=== PATIENT | male | born 1935 | race Hispanic/Latino ===

== ENCOUNTER → 2018-02-05 | Outpatient (CLI) | payer MEDICARE ==
[~2018-02-05] MED LIST: ASPI-555 PO; BIMA12.5OS OD; CILO100T PO; CILO50TA PO; DOXA4TAB3 PO; FLUT16H NS; INSU100I21 SQ; LOSA50TA25 PO; METF-446 PO; METO-408 PO; PRAV40TA3 PO; TIMO5TAB OU
== END | disposition home or self-care (01) ==
LOC: SHCH 14:18
PROVIDERS: ATTEND Internal Medicine Cardiovascular Disease
DX: I73.9 Peripheral vascular disease, unspecified (principal); I10 Essential (primary) hypertension; E11.9 Type 2 diabetes mellitus without complications; E78.5 Hyperlipidemia, unspecified; M19.90 Unspecified osteoarthritis, unspecified site; I25.10 Atherosclerotic heart disease of native coronary artery without angina pectoris; Z87.891 Personal history of nicotine dependence
CPT/HCPCS: 93925

== ENCOUNTER 2018-02-16 07:15 | Day surgery (SDC) | payer MEDICARE ==
[2018-02-13 08:44] VITALS: BP 121/67
[2018-02-13 08:47] LABS: APPEARANCE,URINE Clear (CLEAR); BILIRUBIN,URINE Negative (NEGATIVE); COLOR,URINE Dark Yellow (YELLOW); GLUCOSE, URINE (UA) TRACE mg/dL (NEGATIVE); KETONES,URINE Trace mg/dL (NEGATIVE); LEUKOCYTE ESTERASE ,URINE Negative (NEGATIVE); NITRATE,URINE Negative (NEGATIVE); OCCULT BLOOD,URINE Negative (NEGATIVE); PROTEIN,URINE POS 1+ (NEGATIVE)
[2018-02-13 08:47] LABS: BASOPHILS % (AUTO) 0.4 % (0.0-5.0); EOSINOPHILS % (AUTO) 3.3 % (0.0-8.0); HEMATOCRIT 43.5 % (42-54); LYMPHOCYTES % (AUTO) 40.5 % (21.0-51.0); MEAN CORPUSCULAR HEMOGLOBIN 31.6 pg (27.0-33.0); MEAN CORPUSCULAR HGB CONC 33.2 g/dL (32.0-36.0); MEAN CORPUSCULAR VOLUME 95.3 fL (79-99); MONOCYTES % (AUTO) 4.7 % (3.0-13.0); NEUTROPHILS % (AUTO) 51.1 % (40.0-77.0); NUCLEATED RED BLOOD CELLS 0.1 % (0.0-0.19); PLATELET COUNT (AUTO) 142 K/uL (130-400); RED BLOOD CELL COUNT(AUTO) 4.56 MIL/uL (4.50-6.20); RED CELL DISTRIBUTION WIDTH 12.7 % (11.0-15.5); WHITE BLOOD COUNT (AUTO) 7.6 K/uL (4.8-10.8)
[2018-02-13 08:57] LABS: CREATININE 0.9 mg/dL (0.5-1.5)
[2018-02-13 09:11] LABS: INR 1.02 (0.85-1.15); PARTIAL THROMBOPLASTIN TIME 31.3 SEC (26.3-35.5); PROTHROMBIN TIME 10.7 SEC (9.6-11.6)
[2018-02-13 09:14] LABS: BACTERIA,URINE Rare /HPF (None Seen); MUCUS,URINE Few LPF (None Seen); RBC,URINE None Seen /HPF (0-1); SQUAMOUS EPITHELIAL CELL,UR Rare /HPF (0-2); WBC,URINE None Seen /HPF (0-1)
[~2018-02-16] VITALS: Ht 167.6 cm; Wt 73.5 kg
[2018-02-16] VITALS (10 sets, daily range): BP systolic 121–142; BP diastolic 60–71
[~2018-02-16 07:15] MED LIST changes: -CILO50TA PO; -TIMO5TAB OU
[2018-02-16] MEDS ORDERED: SODIUM CHLORIDE 0.9% 1000ML 1,000 ML IV SCH ×2 (08:00→09:47)
[2018-02-16] MEDS ORDERED: HEPARIN SODIUM 1000UNIT/ML 10ML VIAL ONE (08:43)
[2018-02-16] MEDS ORDERED: NITROGLYCERIN 5 MG/ML 10 ML VIAL IV ONE (08:43)
[2018-02-16] MEDS ORDERED: LIDOCAINE HCL-MPF 2% 5ML VIAL ONE (08:43)
[2018-02-16] MEDS ORDERED: MIDAZOLAM HCL 1 MG/ML 2ML VIAL ONE (08:43)
[2018-02-16] MEDS ORDERED: IODIXANOL 320 MG/ML 100 ML VIAL ONE (08:43)
[2018-02-16] MEDS ORDERED: FENTANYL CITRATE PF 50 MCG/1 ML 2ML VIAL ONE (08:44)
[2018-02-16] MEDS ORDERED: DEXTROSE 50%-WATER 50 ML DISP.SYRIN IV PRN (10:00)
[2018-02-16] MEDS ORDERED: GLUCAGON 1MG KIT 1 MG ML IM PRN (10:00)
[2018-02-16] MEDS ORDERED: METOPROLOL TARTRATE 1 MG/ML 5ML VIAL IV PRN (10:00)
[2018-02-16] MEDS ORDERED: NITROGLYCERIN 0.4 MG SL TAB SL PRN (10:00)
[2018-02-16] MEDS ORDERED: ACETAMINOPHEN 325 MG TAB ONE (10:37)
[2018-02-16] MEDS ORDERED: INSULIN HUMULIN R 100 UNIT/ML 3ML SQ SCH (11:30)
[2018-02-16] MEDS ORDERED: ACETAMINOPHEN 325 MG TAB PO ONE (15:30)
== END 2018-02-16 14:00 | disposition home or self-care (01) ==
LOC: DAH 07:15
PROVIDERS: ATTEND Internal Medicine Cardiovascular Disease
DX: I70.213 Atherosclerosis of native arteries of extremities with intermittent claudication, bilateral legs (principal); Z98.890 Other specified postprocedural states; E78.5 Hyperlipidemia, unspecified; E11.9 Type 2 diabetes mellitus without complications; I10 Essential (primary) hypertension; Z98.49 Cataract extraction status, unspecified eye; Z79.899 Other long term (current) drug therapy; I25.10 Atherosclerotic heart disease of native coronary artery without angina pectoris
CPT/HCPCS: 36200; 36415; 71045; 75630; 80048; 81001; 82948 ×2; 85025; 85610; 85730; 93005; A4606; C1894 ×2; J1644; J2250; J3010; J3490 ×2; J7030; Q9967; 99156; 99157

== ENCOUNTER 2019-02-22 09:14 | Day surgery (SDC) | payer MEDICARE ==
[2019-02-20 15:15] VITALS: BP 115/55
[2019-02-20 15:55] LABS: BASOPHILS % (AUTO) 0.3 % (0.0-5.0); EOSINOPHILS % (AUTO) 2.8 % (0.0-8.0); HEMATOCRIT 43.1 % (42-54); LYMPHOCYTES % (AUTO) 45.3 % (21.0-51.0); MEAN CORPUSCULAR HEMOGLOBIN 31.8 pg (27.0-33.0); MEAN CORPUSCULAR VOLUME 93.3 fL (79-99); MONOCYTES % (AUTO) 5.5 % (3.0-13.0); NEUTROPHILS % (AUTO) 46.1 % (40.0-77.0); NUCLEATED RED BLOOD CELLS 0.2 % (0.0-0.19); PLATELET COUNT (AUTO) 137 K/uL (130-400); RED BLOOD CELL COUNT(AUTO) 4.62 MIL/uL (4.50-6.20); RED CELL DISTRIBUTION WIDTH 13.7 % (11.0-15.5); WHITE BLOOD COUNT (AUTO) 8.6 K/uL (4.8-10.8)
[2019-02-20 16:02] LABS: CREATININE 1.2 mg/dL (0.5-1.5)
[2019-02-22] VITALS (12 sets, daily range): BP systolic 108–153; BP diastolic 50–82
[~2019-02-22] VITALS: Ht 167.6 cm; Wt 71.5 kg
[~2019-02-22 09:14] MED LIST changes: -ASPI-555 PO; -BIMA12.5OS OD; +BIMA2.5D4 OP; +CEFAZOLIN SODIUM 1 GM VIAL IVP ONE; -CILO100T PO; +CYAN250010 PO; -DOXA4TAB3 PO; +DOXA8TAB81 PO; -FLUT16H NS; +FLUTICASONE NASAL; +FOLI-74 PO; +GABA-531 PO; -LOSA50TA25 PO; +LOSA50TA64 PO; -METF-446 PO; +TIMO.5OS OP
[2019-02-22] MEDS ORDERED: CEFAZOLIN SODIUM 1 GM VIAL ONE (09:41)
[2019-02-22] MEDS ORDERED: SODIUM CHLORIDE 0.9% 1000ML 1,000 ML IV ONE (09:41)
[2019-02-22] MEDS ORDERED: LIDOCAINE HCL 1% 20 ML VIAL ONE (10:17)
[2019-02-22] MEDS ORDERED: BUPIVACAINE/PF 0.25% 30ML VIAL IJ ONE (10:17)
[2019-02-22] MEDS ORDERED: BACITRACIN 28.4 GM OINT TP ONE (10:18)
[2019-02-22] MEDS ORDERED: PROPOFOL 10 MG/ML 20ML VIAL IV ONE ×2 (10:30→11:27)
[2019-02-22] MEDS ORDERED: FENTANYL CITRATE PF 50 MCG/1 ML 2ML VIAL ONE (10:30)
[2019-02-22] MEDS ORDERED: LIDOCAINE PF 2% 5ML ABBOJECT ONE (10:30)
[2019-02-22] MEDS ORDERED: EPHEDRINE SULFATE 50 MG/ML AMPULE ONE (11:26)
== END 2019-02-22 13:30 | disposition home or self-care (01) ==
LOC: DAH 09:14
PROVIDERS: ATTEND Urology
DX: N47.1 Phimosis (principal); R35.1 Nocturia; E78.5 Hyperlipidemia, unspecified; I10 Essential (primary) hypertension; E11.51 Type 2 diabetes mellitus with diabetic peripheral angiopathy without gangrene; Z79.899 Other long term (current) drug therapy; Z79.4 Long term (current) use of insulin
CPT/HCPCS: 36415; 54150; 80048; 82948 ×2; 85025; 88304; 93005; A4215; A4221; A4222; A4223; A4351; A4510; A4600; A4663; A6260; J0690; J2001; J2704 ×2; J3010; J3490 ×2; J7030